=== PATIENT | female | born 1990 | race Caucasian/White ===

== ENCOUNTER → 2019-09-16 | Outpatient (CLI) | payer OTHER ==
[~2019-09-16] MED LIST: IBUP-1623 PO; OMEP20TA62 PO; ONDA4TAB13 SL; PROG100C10 PO; TRAM50TA2 PO
[2019-09-16 16:12] LABS: BASOPHILS # (AUTO) 0.12 x10^3/uL (0-0.1); BASOPHILS % (AUTO) 1 % (0-1); EOSINOPHILS # (AUTO) 0.54 x10^3/uL (0-0.4); EOSINOPHILS % (AUTO) 4 % (1-7); LYMPHOCYTES # (AUTO) 4.07 x10^3/uL (1-3.4); LYMPHOCYTES % (AUTO) 28 % (22-44); MD NO; MEAN CORPUSCULAR HEMOGLOBIN 22.7 pg (27.0-34.8); MEAN CORPUSCULAR HGB CONC 31.6 g/dL (32.4-35.8); MEAN CORPUSCULAR VOLUME 71.8 fL (80-100); MEAN PLATELET VOLUME 8.9 fL (7.4-10.4); MONOCYTES # (AUTO) 0.82 x10^3/uL (0.2-0.8); MONOCYTES % (AUTO) 6 % (2-9); NEUTROPHILS # (AUTO) 8.95 x10^3/uL (1.8-6.8); NEUTROPHILS % (AUTO) 62 % (42-75); PLATELET COUNT 499 x10^3/uL (130-400); RED BLOOD COUNT 5.09 x10^6/uL (3.82-5.3); RED CELL DISTRIBUTION WIDTH 19.1 % (9.6-15.2)
[2019-09-16 16:22] LABS: INTERNATIONAL NORMALIZED RATIO 0.9 (0.93-1.1); PROTHROMBIN TIME 9.5 Seconds (9.6-11.5)
[2019-09-16 16:26] LABS: ANION GAP 8 mmol/L (5-15); CALCIUM 8.2 mg/dL (8.5-10.1); CHLORIDE 110 mmol/L (98-107)
[2019-09-16 16:31] LABS: ALANINE AMINOTRANSFERASE 14 U/L (12-78); ALKALINE PHOSPHATASE 142 U/L (45-117); BILIRUBIN,TOTAL 0.2 mg/dL (0.2-1.0); CREATININE 1.16 mg/dL (0.55-1.02); TOTAL PROTEIN 7.5 g/dL (6.4-8.2)
== END | disposition home or self-care (01) ==
LOC: STAR 15:08
PROVIDERS: ATTEND Obstetrics & Gynecology
DX: Z01.818 Encounter for other preprocedural examination (principal); R19.09 Other intra-abdominal and pelvic swelling, mass and lump
CPT/HCPCS: 36415; 80053; 84703; 85025; 85610; 85730

== ENCOUNTER 2019-09-20 07:03 | Day surgery (SDC) | payer OTHER ==
[~2019-09-20] VITALS: Ht 167.6 cm; Wt 124.0 kg
[2019-09-20] MEDS ORDERED: LACTATED RINGERS 1,000 ML IV SCH (07:20)
[2019-09-20] MEDS ORDERED: CEFOTETAN PMX 2GM/50ML 50 ML IV STA (07:23)
[2019-09-20] MEDS ORDERED: hydrALAzine 20 MG/ML, 1ML IV PRN (08:30)
[2019-09-20] MEDS ORDERED: PROMETHAZINE 25 MG/ML, 1ML IV PRN (08:30)
[2019-09-20] MEDS ORDERED: HYDROmorphone 2 MG/ML, 1ML IVPush PRN (08:30)
[2019-09-20] MEDS ORDERED: LABETALOL 5MG/ML, 20ML IV PRN (08:30)
[2019-09-20] MEDS ORDERED: MEPERIDINE/PF 25MG/ML,1ML IVPush PRN (08:30)
[2019-09-20] MEDS ORDERED: OXYcodone 5 MG/5 ML ORAL.SOL UDC PO PRN (08:30)
[2019-09-20] MEDS ORDERED: ONDANSETRON 2MG/ML, 2ML IV PRN (08:30)
[2019-09-20] MEDS ORDERED: FENTANYL PF 250 MCG/5ML ONE (08:57)
[2019-09-20] MEDS ORDERED: MIDAZOLAM 1 MG/ML, 2ML ONE (08:57)
[2019-09-20 09:02] LABS: HCG UR SG 1.015 (1.003-1.030)
[2019-09-20] MEDS ORDERED: BUPIVACAINE/PF-EPI 0.25% 1:200K ONE (09:33)
[2019-09-20] MEDS ORDERED: OxyconTIN ER 20 MG TAB.ER PO ONE (10:00)
[2019-09-20] MEDS ORDERED: ACETAMINOPHEN 500 MG TABLET PO ONE (10:00)
[2019-09-20] MEDS ORDERED: GABAPENTIN 300 MG CAPSULE PO ONE (10:00)
[2019-09-20] MEDS ORDERED: FAMOTIDINE 20 MG TABLET PO ONE (10:00)
[2019-09-20] MEDS ORDERED: METOPROLOL 1 MG/ML, 5ML ONE (10:07)
[2019-09-20] MEDS ORDERED: VASOPRESSIN 20 UNIT/ML, 1ML ONE (11:01)
[2019-09-20] MEDS ORDERED: INTERCEED 3 X 4 INCH DRESSING ONE (11:15)
[2019-09-20] MEDS ORDERED: PROPOFOL 10 MG/ML, 20ML ONE (11:22)
[2019-09-20] MEDS ORDERED: ROCURONIUM 10MG/ML,5ML ONE (11:22)
[2019-09-20] MEDS ORDERED: ONDANSETRON 2MG/ML, 2ML ONE ×2 (11:22)
[2019-09-20] MEDS ORDERED: DEXAMETHASONE 4 MG/ML, 1ML ONE ×2 (11:22→11:23)
[2019-09-20] MEDS ORDERED: FENTANYL PF 100 MCG/2ML ONE (12:12)
[2019-09-20] MEDS ORDERED: OXYcodone 5 MG/5 ML ORAL.SOL UDC ONE (12:13)
[2019-09-20] MEDS: FENTANYL PF 100 MCG/2ML IV PRN ×2 (12:17→12:48)
[2019-09-20] MEDS ORDERED: NEOSTIGMINE 1 MG/ML, 10ML ONE (14:50)
[2019-09-20] MEDS ORDERED: GLYCOPYRROLATE 0.2MG/1ML, 5ML ONE (14:50)
== END 2019-09-20 17:35 | disposition home or self-care (01) ==
LOC: OUT 07:03
PROVIDERS: ATTEND Obstetrics & Gynecology
DX: D25.9 Leiomyoma of uterus, unspecified (principal); N80.0 Endometriosis of uterus; D27.0 Benign neoplasm of right ovary; N83.8 Other noninflammatory disorders of ovary, fallopian tube and broad ligament; K21.9 Gastro-esophageal reflux disease without esophagitis; G43.909 Migraine, unspecified, not intractable, without status migrainosus; F90.9 Attention-deficit hyperactivity disorder, unspecified type; E66.01 Morbid (severe) obesity due to excess calories; Z68.41 Body mass index [BMI] 40.0-44.9, adult; Z90.49 Acquired absence of other specified parts of digestive tract; Z98.890 Other specified postprocedural states; Z88.1 Allergy status to other antibiotic agents
CPT/HCPCS: 36415; 58301; 58561; 58661; 58662; 81025; 86850; 86900; 86923; 88112; 88305; C1765; J1100; J2250; J2405; J2704; J2710; J3010; J3490; J7120